=== PATIENT | male | born 1965 | race Caucasian/White ===

== ENCOUNTER 2016-12-16 10:27 | Emergency (ER) | payer MEDICARE, MEDICAID ==
--- NOTE | 2016-12-16 10:34 | ER Document Report ---
ED Medical Screen (RME) - General Stated Complaint: BACK PAIN Notes: patient with chronic bakc pain. recently seen for back and shoulder pain after a fall before moiz. denies any new injury but has been doing heavy lifting for work. pain in low back without sciatica, without numbness or tingling, UI/SI, saddle anesthesia. has been taking APAP with minimal relief TRAVEL OUTSIDE OF THE [place] IN LAST 30 DAYS: No - Related Data Allergies/Adverse Reactions: latex [Latex] Allergy (Verified 11/25/16 00:53) Past Medical History - Past Medical History Cardiac Medical History: Reports: Hx Hypertension Endocrine Medical History: Reports: Hx Diabetes Mellitus Type 2 Musculoskeltal Medical History: Reports Hx Arthritis, Reports Hx Musculoskeletal Trauma Psychiatric Medical History: Reports: Hx Depression Traumatic Medical History: Reports: Hx Fractures - Hand and wrist Past Surgical History: Reports: Hx Oral Surgery - [place] teeth - Immunizations Hx Diphtheria, Pertussis, Tetanus Vaccination: Yes
--- NOTE | 2016-12-16 11:05 | ER Document Report ---
ED Neck/Back Problem - General Chief Complaint: Back Pain Stated Complaint: BACK PAIN Notes: Patient is here because of lower, lumbar back pain. He first noted the pain when he rolled over in bed around 4 AM this morning, but it got better. He went to work where he was lifting a very heavy object's morning and had sudden, sharp pain in the lower mid lumbar region of the back. No radiation. No loss of bladder or bowel function. No numbness down either leg. Only complaint is of pain. Patient says that he's had chronic back pain in the past. Says he is not currently taking any medications for any medical condition. Denies any chest pains or shortness of breath. I asked the patient if he was on any current medications and he denied. I asked him if he had taken any medications recently for his back or any other condition and he denied taking any medicines for at least a year. He says the last time he got any medications was when he lived in [place] over a year ago. Then, I ask him about the 7 prescriptions for 230 Suboxone that he had filled in [place] from a doctor in [place] between June 27 and October 08, and the patient said he had forgotten about those prescription meds and that they weren't helping his pain, any way. Patient also received a prescription for 20 hydrocodone 5 mg, on November 25, when seen here after a fall. TRAVEL OUTSIDE OF THE [place] IN LAST 30 DAYS: No - Related Data Allergies/Adverse Reactions: latex [Latex] Allergy (Verified 12/16/16 10:34) Past Medical History - Social History Smoking Status: Current Every Day Smoker Cigarette use (# per day): Yes Chew tobacco use (# tins/day): Yes Frequency of alcohol use: None Drug Abuse: None Family History: Arthritis, CAD, CVA, DM, Hyperlipidemia, Hypertension, Malignancy Patient has suicidal ideation: No Patient has homicidal ideation: No - Past Medical History Cardiac Medical History: Reports: Hx Hypertension - On no current medications., Hx Heart Murmur Denies: Hx Coronary Artery Disease Neurological Medical History: Denies: Hx Cerebrovascular Accident Endocrine Medical History: Reports: Hx Diabetes Mellitus Type 2 Musculoskeltal Medical History: Reports Hx Arthritis, Reports Hx Musculoskeletal Trauma Psychiatric Medical History: Reports: Hx Depression Traumatic Medical History: Reports: Hx Fractures - Hand and wrist Past Surgical History: Reports: Hx Oral Surgery - [place] teeth - Immunizations Hx Diphtheria, Pertussis, Tetanus Vaccination: Yes Review of Systems - Review of Systems Notes: REVIEW OF SYSTEMS: CONSTITUTIONAL : Denies fever. EENT: Denies eye, ear, nose or mouth or throat pain or other symptoms. CARDIOVASCULAR: Denies chest pain. RESPIRATORY: Denies cough, chest congestion, or shortness of breath. GASTROINTESTINAL: Denies abdominal pain or nausea, vomiting, or diarrhea. GENITOURINARY: Denies difficulty or painful urinating, urinary frequency, blood in urine. MUSCULOSKELETAL: Complains of lower lumbar back pain, see history of present illness. Denies Neck pain. Denies joint pain or swelling. SKIN: Denies rash or skin lesions. NEUROLOGICAL: Denies LOC or altered mental status. Denies headache. Denies sensory loss or motor deficits. PSYCHIATRIC: Denies anxiety or stress. Denies depression. ALL OTHER SYSTEMS REVIEWED AND NEGATIVE. Physical Exam - Vital signs Vitals: Pulse Resp BP Pulse Ox 114 H 19 132/104 H 98 12/16/16 11:39 12/16/16 11:39 12/16/16 11:39 12/16/16 11:39 Interpretation: Hypertensive - 180/98., Tachycardic - 109 at triage. - Notes Notes: PHYSICAL EXAMINATION: GENERAL: Well-appearing, in no acute distress. Ambulatory. Blood pressure up somewhat. Heart rate elevated slightly. HEAD: Atraumatic, normocephalic. NECK: Normal range of motion, supple. LUNGS: Breath sounds with mild scattered expiratory wheezes bilaterally. HEART: Regular rate and rhythm. Heart rate 132 at bedside by me. I don't hear any significant murmur. I question the patient's about intake of anything that might be causing his heart to go fast and he says that he's been up since 4 AM and has had 6-8 cups of coffee and also smoking cigarettes. Denies any chest pain. Denies shortness of breath. Denies any history of heart disease. No knowledge of tachycardia in the past. Denies hyperthyroid, drug abuse. ABDOMEN: Soft, nontender. No guarding or rebound. No mass present. No bruits heard. BACK: Tender in the lower lumbar midline region. EXTREMITIES: Normal range of motion without pain. NEUROLOGICAL: Normal speech, normal gait. Normal sensory, motor, and reflex exams in both lower extremities. Awake, alert, and oriented x3. Cranial nerves normal. PSYCH: Normal mood, normal affect. SKIN: Warm, dry, no rashes. Course - Re-evaluation Re-evalutation: 12/16/16 11:16 Patient's EKG looks like a sinus rhythm with no acute changes. There is some suggestion of right ventricular hypertrophy, which may be secondary to the patient's smoking so much. I'm going to recommend he cut back on his caffeine and nicotine intake and follow-up with a local practitioner regarding his tachycardia and any further evaluation. Plan to prescribe the patient some muscle relaxer such as Flexeril and some Ultram. 12/16/16 13:40 After patient was discharged, I got a call from a local pharmacy saying that the patient's current healthcare coverage will not cover Robaxin, which is what I prescribed. I did not want to give the patient Flexeril because our computer medical record indicated a problem with the patient taking Flexeril and Ultram, the pain medication which I did prescribed. The pharmacist looked up the Zanaflex which is covered and does not have a detrimental interaction with Ultram. He was prescribed Zanaflex 2 mg 3 times a day for 5 days - Vital Signs Vital signs: Temp Pulse Resp BP Pulse Ox 114 H 19 132/104 H 98 12/16/16 11:39 12/16/16 11:39 12/16/16 11:39 12/16/16 11:39 - EKG Interpretation by Me EKG shows normal: Sinus rhythm Rate: Tachycardia - Rate of 105. Discharge - Discharge Clinical Impression: Lumbar back sprain Qualifiers: Encounter type: initial encounter Qualified Code(s): S33.5XXA - Sprain of ligaments of lumbar spine, initial encounter Condition: Stable Disposition: HOME, SELF-CARE Additional Instructions: LOW BACK PAIN: Three out of every four people will have an episode of disabling back pain during their lifetime. Most commonly the pain is due to straining of the muscles and ligaments in the low back. Usual treatment includes: (1) Rest on a firm surface. Avoid lying on your stomach. (2) Ice pack the painful area. After a few days, gentle heat may be used intermittently to relax the area, or ice packs can be continued. (3) Medication may be needed -- muscle relaxers and antiinflammatory medicines are commonly used. (4) As the back improves, exercises are prescribed to strengthen the back and abdominal muscles. Your doctor will advise you on the proper care for your back at each stage in your recovery. You may be better in a few days -- or healing may take several weeks. If new symptoms of a "herniated disc" (radiation of pain, numbness, or tingling down the back of the leg or weakness in the leg) occur, you should be re-examined. Further testing may be necessary. MUSCLE RELAXERS: Muscle relaxing medications are usually prescribed for acute muscle spasm or injury to the neck and back. They are often combined with antiinflammatory pain medication for increased relief. You may stop the muscle relaxer when the pain and stiffness have improved. Start the medication again if spasms recur. Muscle relaxers may cause drowsiness, especially with the first dose. Do not operate machinery or drive while under the effects of the medication. Most muscle relaxers last up to 24 hours. Do not combine the medication with alcohol. Ultram Ultram is an excellent drug for pain relief. It is not a narcotic, but it works in a similar way. Ultram can take up to two hours for full effect. Although not addicting, Ultram is best avoided in patients with a history of drug abuse. Ultram should not be used with alcohol, sleeping pills, or narcotics. If you're prone to seizures, Ultram can make you more likely to have a seizure. Ultram can be hazardous when combined with MAO-inhibitor antidepressants (such as Nardil or Parnate). Be sure your doctor is aware of all medicines you are taking. Persons with severe liver or kidney disease should increase the time between doses of Ultram. Discuss this with your doctor if you're uncertain. Side effects of Ultram can include dizziness, nausea, constipation, sleepiness, and itching. (These side effects are also seen with narcotic pain medicines.) Please call your doctor if you have other disturbing effects. ICE PACKS: Apply ice packs frequently against the painful area. Many different schedules are recommended, such as "20 minutes on, 20 minutes off" or "one hour ice, two hours rest." If you need to work, you may need to go longer between ice treatments. You should plan to have the area ice packed AT LEAST one fourth of the time. The ice should be applied over the wrap, tape, or splint, or over a layer of cloth -- not directly against the skin. Some ice bags have a built-in cloth and can be put directly on the skin. WARM PACKS: After approximately two days, apply gentle heat (such as a heating pad or hot water bottle) for about 20 to 30 minutes about every two hours -- at least four times daily. Warmth and elevation will help you make a more rapid recovery , and will ease the pain considerably. Do not use HOT heat, and never apply heat for longer than 30 minutes. The continuous heat can invisibly damage skin and muscles -- even when no burn is seen on the surface. Damaged muscles can make you MORE sore. FOLLOW-UP CARE: If you have been referred to a physician for follow-up care, call the physician s office for an appointment as you were instructed or within the next two days. If you experience worsening or a significant change in your symptoms, notify the physician immediately or return to the Emergency Department at any time for re-evaluation. Take the muscle relaxer and pain medication as prescribed. I'm giving her a note for work off for today and tomorrow, should you can have continuing pain. Return if worsening symptoms. Sinus Tachycardia You are experiencing a rapid heartbeat which appears to be a sinus tachycardia on your EKG. There does not appear to be any evidence of heart attack. This is a rapid (but NORMAL) rhythm which can be due to fever, pain, anxiety, lack of sleep, over-exertion, or drugs. Cold medications, caffeine, and diet pills are particularly likely to cause tachycardia. The doctor has found no evidence of heart disease. Occasionally, medication is required for uncomfortable palpitations. Usually, however, all that is required is rest, reassurance, and avoiding caffeine, alcohol, nicotine , and unnecessary medicines. Call the doctor if you develop any new or unusual symptoms, or if the rapid heartbeat does not resolve. Tachycardia can be due to increased ingestion of caffeine or from smoking and nicotine in your system, both of which can increase her heart rate significantly. I recommend you cut back on both of these in follow-up with a local practitioner to have any further indicated evaluation for your tachycardia. Return if you develop any chest pains or shortness of breath, etc. Prescriptions: Tramadol HCl [Ultram 50 mg Tablet] 50 mg PO Q4HP PRN #15 tab PRN Reason: Methocarbamol [Robaxin 500 mg Tablet] 1,000 mg PO QID #40 tablet Forms: Smoking Cessation Education, Return to Work
[2016-12-16 11:39] VITALS: BP 132/104
--- NOTE | 2016-12-16 12:23 | EKG REPORT ---
SEVERITY:- ABNORMAL ECG - SINUS TACHYCARDIA PROBABLE RIGHT VENTRICULAR HYPERTROPHY : Confirmed by: Les Conn MD 16-Dec-2016 12:22:23
== END 2016-12-16 11:39 | disposition home or self-care (01) ==
LOC: ER 10:27
DX: S33.5XXA Sprain of ligaments of lumbar spine, initial encounter (principal); X50.0XXA Overexertion from strenuous movement or load, initial encounter; Y99.0 Civilian activity done for income or pay; M54.5 Low back pain; R00.0 Tachycardia, unspecified; I10 Essential (primary) hypertension; E11.9 Type 2 diabetes mellitus without complications; F17.210 Nicotine dependence, cigarettes, uncomplicated; Z91.040 Latex allergy status; Z82.49 Family history of ischemic heart disease and other diseases of the circulatory system
CPT/HCPCS: 93005; 93010; 99283

== ENCOUNTER 2016-12-25 20:20 | Emergency (ER) | payer MEDICARE, MEDICAID ==
--- NOTE | 2016-12-25 20:32 | ER Document Report ---
ED Medical Screen (RME) - General Stated Complaint: WEAKNESS Mode of Arrival: Ambulatory Information source: Patient Notes: patient presents with c/o ruq pain, history of cirrhosis and chronic back pain. c/o decreased appetite for the past 3-4 days. TRAVEL OUTSIDE OF THE [place] IN LAST 30 DAYS: No - Related Data Allergies/Adverse Reactions: latex [Latex] Allergy (Verified 12/16/16 10:34) Past Medical History - Past Medical History Cardiac Medical History: Reports: Hx Hypertension, Hx Heart Murmur Denies: Hx Coronary Artery Disease Neurological Medical History: Denies: Hx Cerebrovascular Accident Endocrine Medical History: Reports: Hx Diabetes Mellitus Type 2 Renal/ Medical History: Denies: Hx Peritoneal Dialysis Musculoskeltal Medical History: Reports Hx Arthritis, Reports Hx Musculoskeletal Trauma Psychiatric Medical History: Reports: Hx Depression Traumatic Medical History: Reports: Hx Fractures - Hand and wrist Past Surgical History: Reports: Hx Oral Surgery - [place] teeth - Immunizations Hx Diphtheria, Pertussis, Tetanus Vaccination: Yes
[2016-12-25] MEDS ORDERED: NORMAL SALINE 1000 ML 500 ML IV ONE (22:08)
[2016-12-25] MEDS ORDERED: METOCLOPRAMIDE HCL INJ/PF 10 MG/2 ML SDV IV ONE (22:08)
--- NOTE | 2016-12-25 22:51 | ER Document Report ---
ED General - General Chief Complaint: General Weakness Stated Complaint: WEAKNESS Mode of Arrival: Ambulatory Notes: Patient is a 51-year-old male with a history of cirrhosis of the liver who presents with complaint that over last several days she is unable to keep food or liquids down. He says whenever he tries ear drink he feels as if it will not passively down the esophagus and then comes back up. He says it's been approximately 2 days since she's able eat any food. He says he can only occasionally have water. No fevers. No abdominal pain. No other complaints at this time. He is former alcoholic. His last alcohol was 18 years ago. No alcohol since. He continues to smoke and does have emphysema. No vomiting of blood. TRAVEL OUTSIDE OF THE [place] IN LAST 30 DAYS: No - Related Data Allergies/Adverse Reactions: latex [Latex] Allergy (Verified 12/25/16 20:35) Past Medical History - General Information source: Patient - Social History Smoking Status: Current Every Day Smoker Frequency of alcohol use: None Drug Abuse: None Family History: Arthritis, CAD, CVA, DM, Hyperlipidemia, Hypertension, Malignancy Patient has suicidal ideation: No Patient has homicidal ideation: No - Past Medical History Cardiac Medical History: Reports: Hx Hypertension, Hx Heart Murmur Denies: Hx Coronary Artery Disease Neurological Medical History: Denies: Hx Cerebrovascular Accident Endocrine Medical History: Reports: Hx Diabetes Mellitus Type 2 Renal/ Medical History: Denies: Hx Peritoneal Dialysis Musculoskeltal Medical History: Reports Hx Arthritis, Reports Hx Musculoskeletal Trauma Psychiatric Medical History: Reports: Hx Depression Traumatic Medical History: Reports: Hx Fractures - Hand and wrist Past Surgical History: Reports: Hx Oral Surgery - [place] teeth - Immunizations Hx Diphtheria, Pertussis, Tetanus Vaccination: Yes Review of Systems - Review of Systems Notes: My Normal Review Basic REVIEW OF SYSTEMS: CONSTITUTIONAL : Denies fever, chills, or sweats. Denies recent illness. EENT: Denies eye, ear, throat, or mouth pain or symptoms. Denies nasal or sinus congestion. CARDIOVASCULAR: Denies chest pain. RESPIRATORY: Denies cough, cold, or chest congestion. Denies shortness of breath, difficulty breathing, or wheezing. GASTROINTESTINAL: Denies abdominal pain. Recurrent vomiting Denies constipation. Last BM: MUSCULOSKELETAL: Denies neck or back pain or joint pain or swelling. SKIN: Denies rash or skin lesions. NEUROLOGICAL: Denies altered mental status or loss of consciousness. Denies headache. Denies weakness or paralysis or loss of use of either side. Denies problems with gait or speech. Denies sensory or motor loss. ALL OTHER SYSTEMS REVIEWED AND NEGATIVE. Physical Exam - Vital signs Vitals: Temp Pulse Resp BP Pulse Ox 98.3 F 111 H 14 114/84 98 12/25/16 20:29 12/25/16 20:29 12/25/16 20:12/25/16 20:12/25/16 20:29 - Notes Notes: General Appearance: Well nourished, alert, cooperative, no acute distress, no obvious discomfort. Well-appearing Vitals: reviewed, See vital signs table. Head: no swelling or tenderness to the head Eyes: PERRL, EOMI, Conjuctiva clear Mouth: No decreasd moisture Throat: No tonsillar inflammation, No airway obstruction, No lymphadenopathy Neck: Supple, no neck tenderness, No thyromegaly Lungs: No wheezing, No rales, No rhonci, No accessory muscle use, good air exchange bilaterally. Heart: Normal rate, Regular rythm, No murmur, no rub Abdomen: Normal BS, soft, No rigidity, mild diffuse abdominal tenderness to palpation, No guarding, no rebound, no abdominal masses, no organomegaly Extremities: strength 5/5 in all extremities, good pulses in all extremities, no swelling or tenderness in the extremities, no edema. Skin: warm, dry, appropriate color, no rash Neuro: speech clear, oriented x 3, normal affect, responds appropriately to questions. Course - Vital Signs Vital signs: Temp Pulse Resp BP Pulse Ox 98.3 F 111 H 14 114/84 98 12/25/16 20:29 12/25/16 20:29 12/25/16 20:29 12/25/16 20:29 12/25/16 20:29 - Laboratory Result Diagrams: 12/25/16 22:55 12/25/16 22:55 Laboratory results interpreted by me: 12/25/16 12/25/16 22:55 22:55 WBC 11.4 H Absolute Neutrophils 8.6 H Potassium 3.5 L Glucose 111 H Calcium 10.5 H ALT 87 H - Transfer of Care Notes: 12/26/16 01:47 Patient is now feeling much improved after the Reglan. Barium swallow did not show any 2 separate findings. Has a small hiatal hernia. He is safe to be discharged home. He is able swallow without any difficulty after the Reglan. After evaluation is unremarkable. He was given some IV fluids. He looks and feels improved. Patient encouraged return to ER immediately feels severe abdominal pain, vomiting, fevers, or feels unwell. I will refer him to GI for an outpatient upper endoscopy. Patient agrees with plan will be discharged home. Dictation of this chart was performed using voice recognition software; therefore, there may be some unintended grammatical errors. Discharge - Discharge Clinical Impression: Dysphagia Qualifiers: Dysphagia type: unspecified Qualified Code(s): R13.10 - Dysphagia, unspecified Condition: Good Disposition: HOME, SELF-CARE Additional Instructions: Your barium swallow test done here showed that you have a small hiatal hernia. There is no obstruction your esophagus. It is still important that you follow- up with Dr. Koehler, GI physician, for reevaluation and possible upper endoscopy. I will write prescription for Reglan. This is medication we gave you today which helped with your swallowing. Please return to ER immediately if you have worsening of your symptoms, fevers, abdominal pain, recurrent vomiting, or feel unwell. Prescriptions: Metoclopramide HCl [Reglan 10 mg Tablet] 1 tab PO ASDIR PRN #25 tablet PRN Reason: Forms: Return to Work Referrals: SHARON KOEHLER MD [ACTIVE STAFF] - Follow up in 3-5 days
[2016-12-25 23:10] LABS: ABSOLUTE BASOPHILS # (AUTO) 0.1 10^3/uL (0.0-0.2); ABSOLUTE LYMPHOCYTES (AUTO) 2.2 10^3/uL (0.5-4.7); ABSOLUTE MONOCYTES (AUTO) 0.6 10^3/uL (0.1-1.4); ABSOLUTE NEUT (AUTO) 8.6 10^3/uL (1.7-8.2); BASOPHILS % (AUTO) 0.5 % (0-2); EOSINOPHILS % (AUTO) 0.2 % (0-6); HEMATOCRIT 44.5 % (37.9-51.0); HEMOGLOBIN 14.6 g/dL (13.5-17.0); HGB HCT DIFFERENCE -0.7; LYMPHOCYTES % (AUTO) 18.9 % (13-45); MEAN CORPUSCULAR HEMOGLOBIN 29.6 pg (27.0-33.4); MEAN CORPUSCULAR HGB CONC 32.9 g/dL (32.0-36.0); MEAN CORPUSCULAR VOLUME 90 fl (80-97); MONOCYTES % (AUTO) 5.2 % (3-13); RED BLOOD COUNT 4.95 10^6/uL (4.35-5.55); RED CELL DISTRIBUTION WIDTH 12.9 % (11.5-14.0); SEGMENTED NEUTROPHILS % (AUTO) 75.2 % (42-78); WHITE BLOOD COUNT 11.4 10^3/uL (4.0-10.5)
[2016-12-25 23:28] LABS: ALANINE AMINOTRANSFERASE 87 U/L (21-72); ALBUMIN 4.6 g/dL (3.5-5.0); ALKALINE PHOSPHATASE 95 U/L (38-126); ANION GAP 14 (5-19); ASPARTATE AMINO TRANSFERASE 57 U/L (17-59); BILIRUBIN,TOTAL 0.8 mg/dL (0.2-1.3); BLOOD UREA NITROGEN 17 mg/dL (7-20); CALCIUM 10.5 mg/dL (8.4-10.2); CARBON DIOXIDE 27 mmol/L (22-30); CHLORIDE 104 mmol/L (98-107); GLUCOSE 111 mg/dL (75-110); LIPASE 51.2 U/L (23-300); POTASSIUM 3.5 mmol/L (3.6-5.0); SODIUM 144.9 mmol/L (137-145); TOTAL PROTEIN 7.4 g/dL (6.3-8.2)
[2016-12-26] MEDS ORDERED: METOCLOPRAMIDE HCL INJ/PF 10 MG/2 ML SDV IV ONE (00:58)
[2016-12-26] MEDS ORDERED: MORPHINE SULFATE 10 MG/ML INJ IV ONE (00:59)
[2016-12-26 02:11] VITALS: BP 105/65
== END 2016-12-26 01:59 | disposition home or self-care (01) ==
LOC: ER 20:20
DX: R13.10 Dysphagia, unspecified (principal); K44.9 Diaphragmatic hernia without obstruction or gangrene; R53.1 Weakness; J43.9 Emphysema, unspecified; F10.21 Alcohol dependence, in remission; F17.200 Nicotine dependence, unspecified, uncomplicated; I10 Essential (primary) hypertension; E11.9 Type 2 diabetes mellitus without complications; Z87.19 Personal history of other diseases of the digestive system
CPT/HCPCS: 96376; 99285; 96361; 96374; 96375; 36415; 83690; 85025; 80053; 71010; 74220; J2765 ×2; J2270; J7030

== ENCOUNTER 2017-07-24 15:10 | Emergency (ER) | payer OTHER, MEDICARE ==
[2017-07-24 15:42] VITALS: BP 120/91
[2017-07-24] MEDS ORDERED: OXYCODONE-ACETAMINOPHEN 5-325 MG TABLET PO ONE (16:46)
[2017-07-24] MEDS ORDERED: LIDOCAINE 1% INJ-PF (10 MG/ML) 30 ML SDV INJ ONE (16:54)
--- NOTE | 2017-07-24 17:01 | ER Document Report ---
ED Hand/Wrist Injury - General Chief Complaint: Hand Pain Stated Complaint: LEFT HAND INJURY Time Seen by Provider: 07/24/17 16:17 Mode of Arrival: Ambulatory Information source: Patient Notes: 52-year-old male presents to ED for complaint of pain to his third left finger after he dropped a tire rim on his finger 2 days ago. Pain with any movement of this finger. TRAVEL OUTSIDE OF THE [place] IN LAST 30 DAYS: No - HPI Injury to: Middle finger Onset: Other - 2 days ago Where: Public place, Work Timing: Still present Quality of pain: Sharp, Throbbing Severity: Severe Pain Level: 5 Context: Crush - Related Data Allergies/Adverse Reactions: latex [Latex] Allergy (Verified 07/24/17 15:42) Past Medical History - General Information source: Patient - Social History Smoking Status: Current Every Day Smoker Cigarette use (# per day): Yes - Pack per day Chew tobacco use (# tins/day): No Smoking Education Provided: Yes - Less than 2 minutes Frequency of alcohol use: None Drug Abuse: None Lives with: Family Family History: Arthritis, CAD, CVA, DM, Hyperlipidemia, Hypertension, Malignancy Patient has suicidal ideation: No Patient has homicidal ideation: No - Past Medical History Cardiac Medical History: Reports: Hx Hypertension, Hx Heart Murmur Pulmonary Medical History: Reports: Hx Bronchitis, Hx COPD EENT Medical History: Reports: None Neurological Medical History: Reports: None Endocrine Medical History: Reports: Hx Diabetes Mellitus Type 2 Renal/ Medical History: Reports: None Malignancy Medical History: Reports None GI Medical History: Reports: None Musculoskeltal Medical History: Reports Hx Arthritis, Reports Hx Musculoskeletal Deformity, Reports Hx Musculoskeletal Trauma Skin Medical History: Reports None Psychiatric Medical History: Reports: None Traumatic Medical History: Reports: Hx Fractures - Hand and wrist Infectious Medical History: Reports: None Past Surgical History: Reports: Hx Oral Surgery - [place] teeth - Immunizations Hx Diphtheria, Pertussis, Tetanus Vaccination: Yes Review of Systems - Review of Systems Constitutional: No symptoms reported EENT: No symptoms reported Cardiovascular: No symptoms reported Respiratory: No symptoms reported Gastrointestinal: No symptoms reported Genitourinary: No symptoms reported Male Genitourinary: No symptoms reported Musculoskeletal: Other - Pain swelling and laceration to the left middle finger 2 days ago Skin: No symptoms reported Hematologic/Lymphatic: No symptoms reported Neurological/Psychological: No symptoms reported -: Yes All other systems reviewed and negative Physical Exam - Vital signs Vitals: Temp Pulse Resp BP Pulse Ox 97.8 F 82 18 120/91 H 93 07/24/17 15:40 07/24/17 15:40 07/24/17 15:40 07/24/17 15:40 07/24/17 15:40 Interpretation: Normal - General General appearance: Appears well, Alert - HEENT Head: Normocephalic, Atraumatic Eyes: Normal Pupils: PERRL - Respiratory Respiratory status: No respiratory distress Chest status: Nontender Breath sounds: Normal Chest palpation: Normal - Cardiovascular Rhythm: Regular Heart sounds: Normal auscultation Murmur: No - Abdominal Inspection: Normal Distension: No distension Bowel sounds: Normal Tenderness: Nontender Organomegaly: No organomegaly - Back Back: Normal, Nontender - Extremities General upper extremity: Normal color, Normal temperature General lower extremity: Normal inspection, Nontender, Normal color, Normal ROM , Normal temperature, Normal weight bearing. No: Dick's sign Hand: Tender, Ecchymosis, Laceration - Open wounds to the middle left finger tip., No evidence of human bite, No evidence of FB, Swelling - Neurological Neuro grossly intact: Yes Cognition: Normal Orientation: AAOx4 [place] Coma Scale Eye Opening: Spontaneous Mark Coma Scale Verbal: Oriented Mark Coma Scale Motor: Obeys Commands [place] Coma Scale Total: 15 Speech: Normal Motor strength normal: LUE, RUE, LLE, RLE Sensory: Normal - Psychological Associated symptoms: Normal affect, Normal mood - Skin Skin Temperature: Warm Skin Moisture: Dry Skin Color: Normal Course - Re-evaluation Re-evalutation: 07/24/17 21:[address] wick for reading of the x-ray on this injury. The pain is a him stated that this was a tuft fracture. Patient injured this finger on a tire rim 2 days ago. Unable to suture the wound due to the length of time since injury. Site was cleaned with surgical scrub rinsed with saline, bacitracin applied and Telfa dressing with Kevin applied. Patient instructed to follow-up with orthopedics by telephone tomorrow to schedule a follow-up appointment for his open fracture of the tuft of this finger. Patient was treated with Keflex and Percocet in the emergency room and sent home with a prescription for both. 07/24/17 21:39 - Vital Signs Vital signs: Temp Pulse Resp BP Pulse Ox 97.8 F 82 18 120/91 H 93 07/24/17 15:40 07/24/17 15:40 07/24/17 15:40 07/24/17 15:40 07/24/17 15:40 - Diagnostic Test Radiology reviewed: Image reviewed Discharge - Discharge Clinical Impression: open tuft fracture 3rd finger left hand Condition: Stable Disposition: HOME, SELF-CARE Instructions: Open Finger Tuft Fracture ([facility]) Additional Instructions: Tuft Fracture of the Finger The tip of your finger is broken (beneath the finger nail). While painful , this type of fracture is not serious. You can expect the bone to heal within three to four weeks. Elevating and ice packing the finger will help greatly in reducing pain and swelling. You will probably need a protective splint, initially. When you can push firmly on the tip of your finger without any pain, you no longer need to use the splint. If the fingernail becomes black and painful, bleeding has occurred under the nail. This may need to be drained. Sometimes the nail must be removed. Occasionally, the tissue under the nail must be sewn back together. Call the doctor or return for examination if pain becomes severe, or if numbness or severe discoloration occurs. SOAP CLEANSING: Gently wash the wound daily using a mild soap (like Ivory, Phisoderm, Neutrogena). Use warm water, rubbing gently until all debris, ooze, and crusting have been washed from the wound. Allow to dry briefly (about 10 minutes) after cleaning. Repeat this cleansing at least three times a day for the first two days and then once or twice a day. ANTIBIOTIC OINTMENT PROTECTION: Your wounds are such that dressing them is not practical or optional. After cleansing, you should apply a thin coating of antibiotic ointment ( Bacitracin, not Neosporin) to the wounds at least three times daily. This lessens infection risk, and may decrease the amount of scarring. Use a q-tip or dull butter knife, not your finger, to apply this ointment. Any debris or ooze which builds up in the ointment should be gently rubbed off with a sterile gauze pad. Harder crusting may need to be gently scrubbed off with a clean wash cloth with soap and warm water, perhaps applying a warm, wet wash cloth to the wound for ten minutes first. Development of redness, severe itching, or blistering may mean allergy to the ointment. See the doctor. TETANUS IMMUNIZATION GIVEN: You have been given an immunization against tetanus. Please record this in your records. In general, a booster is needed only once every 10 years. The tetanus shot protects against tetanus or "lockjaw," which is a complication of certain wound infections (the tetanus shot cannot protect against the actual infection). The immunization site may become warm and red due to local reaction. If this occurs, apply warm compresses and take aspirin or ibuprofen to reduce inflammation and discomfort. Return for evaluation if the reaction becomes severe. PROPHYLACTIC ANTIBIOTIC: The antibiotics which have been prescribed are designed to decrease the risk of infection. Only certain types of wounds benefit from this -- the typical cut, scrape, or burn DOES NOT require antibiotics. Of course, infection can still occur despite the use of prophylactic antibiotics. Your wound will heal with less chance of an infectious complication if you take the medication as directed. The most important dose is the FIRST dose, so don't delay filling the prescription! Cephalexin The antibiotic you've been prescribed is a member of the cephalosporin class. This type of antibiotic covers a wide variety of infections, including those of the skin, lungs, and urinary tract. It's useful for staph infections. This antibiotic is slightly similar to the penicillin family. In rare cases , a person who is allergic to penicillin will also be allergic to this medication. If you have had a severe allergic reaction to penicillin, and have not taken this antibiotic since that time, notify your doctor. Antibiotics which cover many germs ("broad spectrum" antibiotics) are more likely to cause diarrhea or "yeast" infections. Women prone to vaginal yeast problems may suffer an attack after taking this antibiotic. In infants, oral thrush (white spots "stuck" on the cheek) or yeast diaper rash may result. See your doctor if these problems occur. Call at once if you develop itching, hives , shortness of breath, or lightheadedness. ORAL NARCOTIC MEDICATION: You have been given a prescription for pain control. This medication is a narcotic. It's best taken with food, as nausea can result if taken on an empty stomach. Don't operate machinery or drive within six hours of taking this medication. Do not combine this medicine with alcohol, or with any medication which can cause sedation (such as cold tablets or sleeping pills) unless you get permission from the physician. Narcotics tend to cause constipation. If possible, drink plenty of fluids and eat a diet high in fiber and fruits. FOLLOW-UP CARE: If you have been referred to a physician for follow-up care, call the physician s office for an appointment as you were instructed or within the next two days. If you experience worsening or a significant change in your symptoms, notify the physician immediately or return to the Emergency Department at any time for re-evaluation. Prescriptions: Oxycodone HCl/Acetaminophen [Percocet 5-325 mg Tablet] 1 tab PO Q6HP PRN #15 tablet PRN Reason: Cephalexin Monohydrate [Keflex 500 mg Capsule] 500 mg PO QID #20 capsule Forms: Elevated Blood Pressure, Smoking Cessation Education Referrals: ALVIN BRUMFIELD MD [ACTIVE STAFF] - Follow up as needed
--- NOTE | 2017-07-24 18:12 | RADIOLOGY REPORT (SQ) ---
EXAM DESCRIPTION: FINGER LEFT COMPLETED DATE/TIME: 07/24/2017 4:56 pm REASON FOR STUDY: injury to left third finger COMPARISON: None. NUMBER OF VIEWS: Three views. TECHNIQUE: AP, lateral, and oblique images acquired of the left third finger. LIMITATIONS: None. FINDINGS: MINERALIZATION: Normal. BONES: No acute fracture or dislocation. No worrisome bone lesions. Small bony densities along the anterior aspect of the 3rd PIP joint, either accessory ossicles or old injuries. SOFT TISSUES: Soft tissue disruption involving the distal finger posteriorly. No foreign body. OTHER: No other significant finding. IMPRESSION: Soft tissue disruption without evidence of fracture or foreign body. COMMENT: SITE OF TRAUMA/COMPLAINT MARKED/STAMP COMPLETED: YES. TECHNICAL DOCUMENTATION: JOB ID: [id number] [employer]- All Rights Reserved
[2017-07-24] MEDS ORDERED: DIPH/PERTUSS(ACELL)/TETANUS VAC/PF 0.5 ML SYR (>=10YO) IM ONE (18:22)
== END 2017-07-24 18:55 | disposition home or self-care (01) ==
LOC: ER 15:10
DX: S82.402B Unspecified fracture of shaft of left fibula, initial encounter for open fracture type I or II (principal); M79.642 Pain in left hand; F17.210 Nicotine dependence, cigarettes, uncomplicated; W22.8XXA Striking against or struck by other objects, initial encounter
CPT/HCPCS: 99283; 90471; 73140; 90715; J3490

== ENCOUNTER 2017-09-16 18:49 | Emergency (ER) | payer MEDICARE, MEDICAID ==
[2017-09-16 18:54] VITALS: BP 126/82
--- NOTE | 2017-09-16 19:39 | ER Document Report ---
ED Neck/Back Problem - General Chief Complaint: Back Pain Stated Complaint: BACK PAIN Time Seen by Provider: 09/16/17 19:17 Mode of Arrival: Ambulatory Information source: Patient TRAVEL OUTSIDE OF THE [place] IN LAST 30 DAYS: No - HPI Patient complains to provider of: Pain, Lower back Onset: Last week Where: Home Onset: Gradual Timing: Constant Quality of pain: Achy Severity: Moderate Associated symptoms: Like prior neck/back pain. denies: Chest pain, Abdominal pain, Chills, Constipation, Fever, Incontinence, Motor loss, Numbness/tingling, Radiation to arm, Radiation to chest, Radiation to leg, Sensory loss, Sweaty, Unable to urinate, Lower back pain, Upper back pain Exacerbated by: Movement of trunk Relieved by: Remaining still Similar symptoms previously: Yes Recently seen / treated by doctor: Yes Notes: Patient arrives with complaints of low back pain. He states for the last 3 days he has had the low back pain. He denies any falls, trauma, injury. He has a history of chronic back pain and states that this feels similar to back pain he has had in the past. He denies being on any blood thinners. He denies any bowel or bladder dysfunction. No numbness, tingling, weakness. No abdominal pain. No chest pain or shortness of breath. No rash. He denies any dysuria or hematuria. He has no other complaints at this time. - Related Data Allergies/Adverse Reactions: latex [Latex] Allergy (Verified 09/16/17 18:53) Past Medical History - Social History Smoking Status: Unknown if Ever Smoked Family History: Arthritis, CAD, CVA, DM, Hyperlipidemia, Hypertension, Malignancy - Past Medical History Cardiac Medical History: Reports: Hx Hypertension, Hx Heart Murmur Pulmonary Medical History: Reports: Hx Bronchitis, Hx COPD Endocrine Medical History: Reports: Hx Diabetes Mellitus Type 2 Renal/ Medical History: Denies: Hx Peritoneal Dialysis Musculoskeltal Medical History: Reports Hx Arthritis, Reports Hx Musculoskeletal Deformity, Reports Hx Musculoskeletal Trauma Psychiatric Medical History: Reports: Hx Depression Traumatic Medical History: Reports: Hx Fractures - Hand and wrist Past Surgical History: Reports: Hx Oral Surgery - [place] teeth - Immunizations Hx Diphtheria, Pertussis, Tetanus Vaccination: Yes Review of Systems - Review of Systems -: Yes All other systems reviewed and negative Physical Exam - Vital signs Vitals: Temp Pulse BP Pulse Ox 98.9 F 84 126/82 H 97 09/16/17 18:53 09/16/17 18:53 09/16/17 18:53 09/16/17 18:53 - Notes Notes: GENERAL: alert, cooperative, nontoxic, no distress. HEAD: normocephalic, atraumatic EYES: conjunctiva pink without discharge, no external redness or swelling. EARS: no external swelling, no external redness NOSE: atraumatic, no external swelling MOUTH/THROAT: mucous membranes moist and pink, posterior pharynx without erythema, swelling, exudate. No trismus or drooling. NECK: soft, supple, full range of motion, no meningismus. CHEST: no distress, lungs clear and equal throughout. No wheezing, rales, rhonchi. CARDIAC: regular rate and rhythm, no murmur, normal capillary refill, normal pulses. No peripheral edema noted. ABDOMEN: soft, nontender, no pusatile mass. BACK: Mild lumbar paraspinal muscle tenderness noted. EXTREMITIES: full range of motion of all extremities. No redness, no swelling. NEURO: alert and oriented -3, no focal deficits, full range of motion of all extremities. 5 out of 5 flexion and extension of the lower extremities bilaterally. Patellar and Achilles deep tendon reflexes are +2 bilaterally. Normal sensation with no saddle anesthesia. PYSCH: appropriate mood, affect. Patient is cooperative. SKIN: pink, warm, dry, no rash. Course - Re-evaluation Re-evalutation: 09/16/17 19:36 Patient is nontoxic appearing with stable vitals. The patient has a history of chronic back pain. He denies any recent falls or injuries. He states that he has had increased low back pain over the last 3 days. He has a benign exam with no sign of cauda equina, epidural abscess/bleed, discitis, AAA. Patient will be discharged home with a prescription for Voltaren and Zanaflex. Follow- up if not better in 1 week, sooner for increased pain, fever, numbness, tingling , weakness, any further concerns. The patient is noted to have elevated blood pressure during today's emergency department visit. The patient was informed of this finding. The patient was instructed that this may be related to pre-hypertension and requires further evaluation with a primary care provider. The patient has no hypertensive symptoms at this time. The patient's emergency department workup and current diagnosis were explained to the patient and or family. Follow-up instructions were provided. Medications if prescribed were discussed. Instructions for when to return to the emergency department including specific worrisome symptoms were discussed with the patient and/or family. - Vital Signs Vital signs: Temp Pulse Resp BP Pulse Ox 98.9 F 84 126/82 H 97 09/16/17 18:53 09/16/17 18:53 09/16/17 18:53 09/16/17 18:53 Discharge - Discharge Clinical Impression: Chronic low back pain Qualifiers: Back pain laterality: left Sciatica presence: without sciatica Qualified Code(s ): M54.5 - Low back pain; G89.29 - Other chronic pain; G89.29 - Other chronic pain Condition: Stable Disposition: HOME, SELF-CARE Instructions: Low Back Pain ([facility]) Additional Instructions: Take medications as prescribed. Get established with a primary care doctor to help control your chronic pain. Follow-up sooner for increased pain, fever, numbness, tingling, weakness, difficulty controlling her bowels or bladder, abdominal pain, or any further concerns. Your blood pressure was elevated during today's visit. Have this rechecked with your doctor. Prescriptions: Diclofenac Sodium [Voltaren 50 Mg Tablet.] 50 mg PO BID #20 tablet. Tizanidine HCl [Zanaflex 4 Mg Tablet] 4 mg PO BID PRN #10 tablet PRN Reason: Forms: Elevated Blood Pressure Referrals: [facility] [Provider Group] - Follow up as needed
== END 2017-09-16 19:51 | disposition home or self-care (01) ==
LOC: ER 18:49
DX: G89.29 Other chronic pain (principal); M54.5 Low back pain; I10 Essential (primary) hypertension; Z91.040 Latex allergy status; E11.9 Type 2 diabetes mellitus without complications; J44.9 Chronic obstructive pulmonary disease, unspecified
CPT/HCPCS: 99283